=== PATIENT | male | born 1985 | race Hispanic/Latino ===

== ENCOUNTER 2022-08-03 03:57 | Emergency (ER) | payer SELFPAY ==
[2022-08-03] MEDS ORDERED: Lidocaine 1% PF 5 ML VIAL ONE (04:17)
[2022-08-03] MEDS ORDERED: Boostrix 0.5 ML (Tdap) VIAL (>/=7 yrs of age) ONE (04:17)
[2022-08-03] MEDS ORDERED: Bacitracin 1 PK ONE (06:18)
== END 2022-08-03 06:50 | disposition home or self-care (01) ==
LOC: ERS 03:57
DX: F10.129 Alcohol abuse with intoxication, unspecified (principal); Z23 Encounter for immunization
CPT/HCPCS: 12013; 70450; 72125; 90471; 90715